=== PATIENT | male | born 1945 | race Caucasian/White ===

== ENCOUNTER 2022-06-12 09:30 | Outpatient (CLI) | payer MEDICARE ==
[2022-06-12] MEDS ORDERED: Iopamidol 300 61% 100 ML VIAL FS ONE (12:25)
== END 2022-06-12 09:31 | disposition home or self-care (01) ==
LOC: CSHCT 09:30
PROVIDERS: ATTEND Urology
DX: N28.1 Cyst of kidney, acquired (principal); N20.0 Calculus of kidney; K57.30 Diverticulosis of large intestine without perforation or abscess without bleeding
CPT/HCPCS: 74178; 82565; Q9967